=== PATIENT | female | born 1985 | race Caucasian/White ===

== ENCOUNTER 2018-09-01 07:27 | Inpatient (IN) | payer MEDICAID ==
[2018-09-01] MEDS ORDERED: CARBOPROST 250 MCG INJ IM ×2 (08:00→18:30)
[2018-09-01] MEDS ORDERED: LIDOCAINE 1% (MPF) 30 ML INJ INJ (08:00)
[2018-09-01] MEDS ORDERED: OXYTOCIN 30 UNITS/LR 500 ML IV ×2 (08:00→18:30)
[2018-09-01 08:28] LABS: ADD MAN DIFF? NO
[2018-09-01 08:35] LABS: WHITE BLOOD COUNT 4.4 10^3/ul (4.8-10.8)
[2018-09-01 08:35] LABS: BASOPHILS % 0.5 % (0.0-2.0); EOSINOPHILS # 0.1 10^3/ul (0.0-0.5); EOSINOPHILS % 1.4 % (0.0-7.0); HEMATOCRIT 38.4 % (37.0-47.0); HEMOGLOBIN 12.8 g/dl (12.0-16.0); LYMPHOCYTES # 1.2 10^3/ul (0.8-2.9); LYMPHOCYTES % 26.7 % (15.0-51.0); MEAN CORPUSCULAR HEMOGLOBIN 28.9 pg (29.0-33.0); MEAN CORPUSCULAR HGB CONC 33.3 g/dl (32.0-37.0); MEAN CORPUSCULAR VOLUME 86.7 fl (82.0-101.0); MEAN PLATELET VOLUME 12.3 fl (7.4-10.4); MONOCYTE # 0.3 10^3/ul (0.3-0.9); MONOCYTES % 6.2 % (0.0-11.0); NEUTROPHIL # 2.8 10^3/ul (1.6-7.5); PLATELET COUNT 153 10^3/UL (140-415); RED BLOOD COUNT 4.43 10^6/ul (4.20-5.40)
[2018-09-01 08:59] LABS: INR 0.88; PT RATIO 0.9
[2018-09-01 09:00] LABS: PARTIAL THROMBOPLASTIN TIME 27.7 Sec (23.0-35.0)
[2018-09-01 09:26] LABS: HEPATITIS B SURFACE ANTIGEN NEGATIVE (NEGATIVE)
[2018-09-01] MEDS: OXYTOCIN 30 UNITS/LR 500 ML IV ×3 (09:44→17:35)
[2018-09-01] MEDS: LACTATED RINGER'S 1,000 ML IV (09:46)
[2018-09-01 15:43] LABS: RAPID PLASMA REAGIN NONREACTIVE (NR)
[2018-09-01] MEDS: MISOPROSTOL 200 MCG TAB PR (17:37)
[2018-09-01] MEDS: METHYLERGONOVINE 0.2 MG INJ IM (17:38)
[2018-09-01] MEDS ORDERED: MAGNESIUM HYDROXIDE 30ML CUP PO (18:30)
[2018-09-01] MEDS ORDERED: ZOLPIDEM 5 MG TAB PO (18:30)
[2018-09-01] MEDS ORDERED: DIBUCAINE 1% 30 GM OINT TOP (18:30)
[2018-09-01] MEDS ORDERED: OXYCODONE/ASPIRIN (4.88/325) TAB PO (18:30)
[2018-09-01] MEDS ORDERED: ONDANSETRON 4 MG INJ IV (18:30)
[2018-09-01] MEDS ORDERED: MISOPROSTOL 200 MCG TAB PR (18:30)
[2018-09-01] MEDS ORDERED: DIPHENHYDRAMINE 50 MG INJ IV (18:30)
[2018-09-01] MEDS ORDERED: METHYLERGONOVINE 0.2 MG INJ IM (18:30)
[2018-09-01] MEDS: IBUPROFEN 600 MG TAB PO (19:58)
[2018-09-01] MEDS: BENZOCAINE 20% 56 ML SPRAY TOP (23:43)
[2018-09-01] MEDS: LANOLIN HPA 1 PKT TOP (23:43)
[2018-09-01] MEDS: WITCH HAZEL/GLYCERIN PAD PR (23:43)
[2018-09-01] MEDS: LACTATED RINGER'S 1,000 ML IV* (23:43)
[2018-09-01] MEDS: ACETAMINOPHEN 325 MG TAB PO (23:44)
[2018-09-02] MEDS: DEXTROSE 5%-LR 1,000 ML IV ×4 (00:54→11:27)
[2018-09-02] MEDS: LACTATED RINGER'S 1,000 ML IV* ×3 (02:24→11:27)
[2018-09-02] MEDS: IBUPROFEN 600 MG TAB PO ×5 (05:46→23:50)
[2018-09-02 09:19] LABS: ADD MAN DIFF? NO
[2018-09-02 09:25] LABS: BASOPHILS % 0.2 % (0.0-2.0); EOSINOPHILS % 0.4 % (0.0-7.0); HEMATOCRIT 26.5 % (37.0-47.0); HEMOGLOBIN 8.8 g/dl (12.0-16.0); LYMPHOCYTES # 1.4 10^3/ul (0.8-2.9); LYMPHOCYTES % 16.7 % (15.0-51.0); MEAN CORPUSCULAR HGB CONC 33.2 g/dl (32.0-37.0); MEAN CORPUSCULAR VOLUME 87.5 fl (82.0-101.0); MEAN PLATELET VOLUME 12.2 fl (7.4-10.4); MONOCYTE # 0.4 10^3/ul (0.3-0.9); MONOCYTES % 5.3 % (0.0-11.0); NEUTROPHIL # 6.4 10^3/ul (1.6-7.5); NEUTROPHILS % 76.9 % (39.0-77.0); PLATELET COUNT 135 10^3/UL (140-415); RED BLOOD COUNT 3.03 10^6/ul (4.20-5.40); RED CELL DISTRIBUTION WIDTH 16.2 % (11.5-14.5)
[2018-09-02 09:25] LABS: WHITE BLOOD COUNT 8.3 10^3/ul (4.8-10.8)
[2018-09-03] MEDS: IBUPROFEN 600 MG TAB PO ×2 (05:54→11:37)
[2018-09-03] MEDS: SENNA/DOCUSATE NA (8.6MG/50MG) TAB PO (08:57)
[2018-09-03] MEDS ORDERED: DIPHTH/TET/ACEL PERTUSS (ADULT) 0.5 ML VIAL IM* (09:00)
[2018-09-03] MEDS ORDERED: MEASLES,MUMPS,RUBELLA VACCINE INJ SC* (09:00)
[2018-09-03] MEDS: BENZOCAINE 20% 56 ML SPRAY TOP (11:37)
[2018-09-03] MEDS: WITCH HAZEL/GLYCERIN PAD PR (11:37)
== END 2018-09-03 12:39 | disposition home or self-care (01) | DRG 807 ==
LOC: OBT 07:27 → L-D 07:27 → OBT 07:54 → L-D 07:55 → PP1 20:12
PROVIDERS: Obstetrics & Gynecology
PROC: 10E0XZZ Delivery of Products of Conception, External Approach (ICD-10-PCS; principal; 2018-09-01)
PROC: 0KQM0ZZ Repair Perineum Muscle, Open Approach (ICD-10-PCS; 2018-09-01)
DX: O66.0 Obstructed labor due to shoulder dystocia (principal); Z37.0 Single live birth; O70.1 Second degree perineal laceration during delivery; O90.81 Anemia of the puerperium; D64.9 Anemia, unspecified; Z3A.39 39 weeks gestation of pregnancy
CPT/HCPCS: 76815; 85025; 85610; 85730; 86592; 86850; 86900; 86901; 87340